=== PATIENT | male | born 1955 | race Caucasian/White ===

== ENCOUNTER 2017-07-14 11:29 | Emergency (ER) | payer OTHER ==
[~2017-07-14] VITALS: Ht 180.3 cm; Wt 116.9 kg
[~2017-07-14 11:29] MED LIST: ASPEC81 PO; BP MEDS; CHOL MED; GLC500 PO
[2017-07-14 11:37] VITALS: TEMP 36.5; Ht 180.3 cm; Wt 116.9 kg
[2017-07-14] MEDS ORDERED: METF-841 PO (11:59)
[2017-07-14] MEDS ORDERED: ASPI81TA28 PO (11:59)
[2017-07-14] MEDS ORDERED: SIMV20TA2 PO (12:07)
[2017-07-14] MEDS ORDERED: POTA1TAB97 PO (12:07)
[2017-07-14] MEDS ORDERED: CTP1 PO (12:07)
[2017-07-14] MEDS ORDERED: [UNRECOGNIZED DRUG - CODE] PO (12:07)
[2017-07-14] MEDS ORDERED: AMR2 PO (12:07)
[2017-07-14] MEDS ORDERED: INSU1INJ32 (12:07)
[2017-07-14] MEDS ORDERED: TERA1CAP PO (12:07)
[2017-07-14] MEDS ORDERED: NTRGSL/4 UT (12:07)
[2017-07-14] MEDS ORDERED: OMEG10007 PO (12:07)
[2017-07-14] MEDS ORDERED: CARV80CA PO (12:07)
--- NOTE | 2017-07-14 12:09 | EMERGENCY ROOM VISIT NOTE ---
ED Visit Note First contact with patient: 11:50 CHIEF COMPLAINT: Hand injury HISTORY OF PRESENT ILLNESS: This 62-year-old male patient presented to the emergency department approximately one and half hours after they injured the right hand at work. The patient states he was using a drill press, and "had my hand where he shouldn't have" and states that he accidentally smashed his hand between the drill press and the base. The patient states the injury occurred at approximately 10:30. The patient now presents with bruising, swelling, significant pain in the lateral aspect of his hand, and a superficial laceration which has been bleeding on the posterior aspect of the right hand. The patient rates the pain as throbbing and 9/10. The patient denies any numbness or tingling. The patient does not have injuries to the wrist. The patient has not had a previous fracture to this hand. REVIEW OF SYSTEMS: A 6 system review of systems was completed with positives and pertinent negatives in the HPI. ALLERGIES: None MEDICATIONS: Tozcziwaau-uqvnavcrt-GBWD, aspirin, carvedilol, clonidine, fish oil , glimepiride, to receive a, metformin, Nitrostat, potassium chloride, simvastatin, Terazosin PMH: Diabetes, heart disease, hypertension, kidney stones SOCIAL HISTORY: The patient lives locally with family. He denies drug, alcohol , tobacco use. PHYSICAL EXAM: Vital Signs: Reviewed Nurse's notes, vital signs stable. GENERAL : This is a 62-year-old obese, white male, in no acute distress, but appears to be in pain, well-developed, well-nourished. MUSCULOSKELETAL: There is no obvious deformity of the right hand, however, there is significant lateral swelling. There is tenderness over the 1-3 metacarpals. There is no thenar or hypothenar eminence atrophy. Thumb opposition to all fingers is limited due to the significant amount of swelling in the hand. Mail Clerk strength 2/5, due to swelling and pain. There is a very superficial laceration on the dorsal aspect of the right hand, overlying the 2nd and 3rd metacarpals. Capillary refill less than 2 seconds. No tenderness of the fingers or wrist. Full range of motion of the wrist. No snuff box tenderness. Radial pulse 2+. NEURO: Alert and oriented to person, place, and time. Normal sensation to light and sharp touch. RADIOLOGY: X-Ray Right Hand: RIGHT HAND MIN 3 VIEWS ROUTINE CLINICAL HISTORY: right hand swelling, bruising - crush injury Right trauma. Pain. COMPARISON: None. DISCUSSION: Generalized soft tissue edematous change. Generalized moderate degenerative change. No well-defined fracture dislocation. IMPRESSION: Generalized degenerative change. Soft tissue edema. No acute bony abnormality. EMERGENCY DEPARTMENT COURSE: I examined the patient. I offered pain medication and the patient initially declines. He did later ask for pain medication. He was given morphine 8 mg IM for the pain. An x-ray of the right hand was reviewed by myself and radiologist and shows no acute fracture. The wound on the hand was cleaned with sterile saline and gauze. This was bandaged with Steri-Strips. The wound was covered with gauze and an Bethel wrap for stabilization due to the significant swelling. I discussed the patient the risks of compartment syndrome, cellulitis, or nerve impingement, and he understands these risks. I gave him very clear instructions on when to follow- up, outpatient tomorrow, but sooner in the emergency department for any significant numbness or tingling, significant swelling in the distal extremities , acute onset of severe pain, or other concerning symptoms. The patient was given an Adacel vaccination. The patient was discharged home in good condition. DIFFERENTIAL DIAGNOSIS: Fracture, contusion, compartment syndrome, edema, cellulitis, open fracture, laceration, abrasion, and others. DIAGNOSIS: crush injury right hand with superficial laceration, edema of right hand. DISCHARGE INSTRUCTIONS: ORTHOPEDIC INSTRUCTIONS: Steri-strips were put in place on your hand due to the superficial laceration. These will fall off on their own. Please do not soak the wound in water. The Steri-Strips will fall off on their own. When they do, use bacitracin and a Band-Aid to cover the wound. Continue to avoid soaking the wound in water, however you may at this point wash it with soap and water. DO NOT drive, drink alcohol, operate machinery, or perform dangerous activities today. You were given medications in the ER that can affect your ability to safely function or operate a vehicle. Oxycodone (OxyIR) 5mg: Take 1-2 pills every four hours as needed for breakthrough pain. Avoid alcohol, operating machinery or dangerous equipment, working on ladders or roofs, DRIVING, or situations where being under the influence may be dangerous. It is recommended to use an jmqn-bwv-pnhqqjx stool softener such as Colace, 100mg twice daily while taking this medication to avoid constipation. You were prescribed Keflex to be taken 4 times daily. This is an antibiotic. All antibiotics have the potential to cause diarrhea. Stop this medication and contact a medical provider if you were to develop any significant adverse side effects including: wheezing, shortness of breath, passing out, vomiting, or a diffuse rash. Always take antibiotics as directed and COMPLETE the ENTIRE course regardless of the improvement of your symptoms. Ibuprofen(Motrin, Advil) may be used for fever or pain. Use 600mg every six hours as needed. Take with food. Avoid using more than 2400mg in a 24 hour period. Do not use 2400mg per day for more than three consecutive days without physician direction. Prolonged inappropriate use can lead to stomach upset or ulcers. Take this medication consistently for the next 2-3 days to help with swelling. (AND/OR) Acetaminophen(Tylenol) may be used for fever or pain. Use 1000mg every six hours as needed. Avoid using more than 3000mg in a 24 hour period. Use this medication as needed between ibuprofen doses. Ice compresses for 20 minutes at a time four times daily for 2-3 days. Rest and elevate your injury. Do not get the splint wet. If your splint feels excessively tight, you have worsening pain, develop numbness or tingling, or your digits appear blue, loosen the bethel wrap. Then reapply the bethel wrap. If your symptoms are not quickly relieved return to the ER for re-evaluation. Return to the ER immediately for any numbness, tingling, severe pain, extreme swelling in the extremity, redness in the hand or surrounding the laceration, or as needed. Call [facility], [phone], or whoever your worker's comp providers require, to arrange follow up for your injury TOMORROW. Follow-up with your primary care physician, or worker's compensation provider, in 1 day for a recheck of your current condition. Current/Historical Medications Scheduled Casaetnbcz-Fafxcgcyv-Fxlywhsjr (Amlodipine/Valsartan/Hctz 10-160-25 mg), 1 TAB PO DAILY Aspirin (Aspirin Ec), 81 MG PO DAILY Carvedilol Phosphate (Coreg Cr), 80 MG PO QAM Cephalexin Monohydrate (Keflex), 500 MG PO QID Fish Oil (Ashley-3), 1 CAP PO BID Glimepiride (Glimepiride), 2 MG PO QDB Metformin HCl (Metformin HCl ER), 1,000 MG PO BID Nitroglycerin (Nitrostat), 0.4 MG UT PRN Potassium Chloride (K-Tab), 20 MEQ PO DAILY Simvastatin (Zocor), 20 MG PO QPM Terazosin Hcl (Hytrin), 1 MG PO DAILY Scheduled PRN Clonidine HCl (Clonidine HCl), 0.1 MG PO BID PRN for . Oxycodone Ir (Roxicodone Ir), 1-2 TAB PO Q4H PRN for Pain Miscellaneous Medications Insulin Degludec (Tresiba Flextouch), Unknown Dose Allergies Coded Allergies: No Known Allergies (Unverified , 07/14/17) Vital Signs Date Time Temp Pulse Resp B/P (MAP) Pulse Ox O2 Delivery O2 Flow Rate FiO2 07/14/17 13:35 86 20 156/92 96 Room Air 07/14/17 11:37 36.5 86 18 175/112 93 Room Air Medications Administered Medications (Trade) Dose Ordered Sig/Don Route Start Time Stop Time Status Last Admin Dose Admin Morphine Sulfate (MoRPHine SULFATE INJ) 8 mg STK-MED ONCE .ROUTE 07/14/17 12:35 07/14/17 12:36 DC 07/14/17 12:42 8 MG Diphtheria/ Pertussis/Tetanus Vacc (Adacel Inj) 0.5 ml ONCE ONCE IM. 07/14/17 13:15 07/14/17 13:16 DC 07/14/17 13:30 0.5 ML Departure Information Impression Primary Impression: Crush injury of hand Additional Impressions: Edema of hand Laceration of hand Dispostion Home / Self-Care Condition GOOD Prescriptions Cephalexin Monohydrate (Keflex) 500 Mg Cap 500 MG PO QID for 10 Days, #40 CAP Prov: Yuni Avila PA-C 07/14/17 Oxycodone Ir (Roxicodone Ir) 5 Mg Tab 1-2 TAB PO Q4H Y for Pain, #15 TAB For Initial Treatment Prov: Yuni Avila PA-C 07/14/17 Referrals Bandar Delgado D.O. (PCP) Patient Instructions ED Compartment Syndrome At Risk For, ED Crush Injury Finger No Fx, My [facility] Additional Instructions ORTHOPEDIC INSTRUCTIONS: Steri-strips were put in place on your hand due to the superficial laceration. These will fall off on their own. Please do not soak the wound in water. The Steri-Strips will fall off on their own. When they do, use bacitracin and a Band-Aid to cover the wound. Continue to avoid soaking the wound in water, however you may at this point wash it with soap and water. DO NOT drive, drink alcohol, operate machinery, or perform dangerous activities today. You were given medications in the ER that can affect your ability to safely function or operate a vehicle. Oxycodone (OxyIR) 5mg: Take 1-2 pills every four hours as needed for breakthrough pain. Avoid alcohol, operating machinery or dangerous equipment, working on ladders or roofs, DRIVING, or situations where being under the influence may be dangerous. It is recommended to use an twyx-fdc-arflapc stool softener such as Colace, 100mg twice daily while taking this medication to avoid constipation. You were prescribed Keflex to be taken 4 times daily. This is an antibiotic. All antibiotics have the potential to cause diarrhea. Stop this medication and contact a medical provider if you were to develop any significant adverse side effects including: wheezing, shortness of breath, passing out, vomiting, or a diffuse rash. Always take antibiotics as directed and COMPLETE the ENTIRE course regardless of the improvement of your symptoms. Ibuprofen(Motrin, Advil) may be used for fever or pain. Use 600mg every six hours as needed. Take with food. Avoid using more than 2400mg in a 24 hour period. Do not use 2400mg per day for more than three consecutive days without physician direction. Prolonged inappropriate use can lead to stomach upset or ulcers. Take this medication consistently for the next 2-3 days to help with swelling. (AND/OR) Acetaminophen(Tylenol) may be used for fever or pain. Use 1000mg every six hours as needed. Avoid using more than 3000mg in a 24 hour period. Use this medication as needed between ibuprofen doses. Ice compresses for 20 minutes at a time four times daily for 2-3 days. Rest and elevate your injury. Do not get the splint wet. If your splint feels excessively tight, you have worsening pain, develop numbness or tingling, or your digits appear blue, loosen the bethel wrap. Then reapply the bethel wrap. If your symptoms are not quickly relieved return to the ER for re-evaluation. Return to the ER immediately for any numbness, tingling, severe pain, extreme swelling in the extremity, redness in the hand or surrounding the laceration, or as needed. Call [facility], [phone], or whoever your worker's comp providers require, to arrange follow up for your injury TOMORROW. Follow-up with your primary care physician, or worker's compensation provider, in 1 day for a recheck of your current condition. Work Instructions Return To Work: 2 days Problem Qualifiers Primary Impression: Crush injury of hand Encounter type: initial encounter Laterality: right Qualified Codes: S67.21XA - Crushing injury of right hand, initial encounter Additional Impressions: Laceration of hand Encounter type: initial encounter Foreign body presence: without foreign body Laterality: right Qualified Codes: S61.411A - Laceration without foreign body of right hand, initial encounter
[2017-07-14] MEDS ORDERED: MoRPHine SULFATE 10 MG/ML CARP/VIAL IV STA (12:24)
[2017-07-14] MEDS ORDERED: MoRPHine SULFATE 10 MG/ML CARP/VIAL IM STA (12:32)
[2017-07-14] MEDS ORDERED: MoRPHine SULFATE 4 MG/ML 1 ML CARP\\VIAL ONE (12:35)
--- NOTE | 2017-07-14 12:49 | DIAGNOSTIC IMAGING REPORT ---
RIGHT HAND MIN 3 VIEWS ROUTINE CLINICAL HISTORY: right hand swelling, bruising - crush injury Right trauma. Pain. COMPARISON: None. DISCUSSION: Generalized soft tissue edematous change. Generalized moderate degenerative change. No well-defined fracture dislocation. IMPRESSION: Generalized degenerative change. Soft tissue edema. No acute bony abnormality. The above report was generated using voice recognition software. It may contain grammatical, syntax or spelling errors. Electronically signed by: Jim Ledezma M.D. 07/14/2017 12:47 PM Dictated Date/Time: 07/14/2017 12:46 PM
[2017-07-14] MEDS ORDERED: DIPHTHERIA/TETANUS/PERTUSSIS 0.5 ML SYR/VIAL IM. ONE (13:15)
[2017-07-14] MEDS ORDERED: OXYC1TAB3 PO (13:25)
[2017-07-14] MEDS ORDERED: CEPH500C PO (13:25)
[2017-07-14 13:35] VITALS: BP 156/92; PULSE 86; O2SAT 96
== END 2017-07-14 13:42 | disposition home or self-care (01) ==
LOC: C.EDB 11:30 → C.EDD 13:42
DX: S67.21XA Crushing injury of right hand, initial encounter (principal); S61.419A Laceration without foreign body of unspecified hand, initial encounter; W31.1XXA Contact with metalworking machines, initial encounter; Y99.0 Civilian activity done for income or pay; Y92.89 Other specified places as the place of occurrence of the external cause; E11.9 Type 2 diabetes mellitus without complications; I10 Essential (primary) hypertension; Z79.899 Other long term (current) drug therapy; I51.9 Heart disease, unspecified